=== PATIENT | female | born 1985 | race Caucasian/White ===

== ENCOUNTER 2016-06-07 11:46 | Emergency (ER) | payer OTHER ==
[~2016-06-07] VITALS: Ht 154.9 cm; Wt 59.0 kg
[2016-06-07 12:15] VITALS: BP 141/86
== END 2016-06-07 12:17 | disposition home or self-care (01) ==
LOC: ER 11:47
DX: O99.511 Diseases of the respiratory system complicating pregnancy, first trimester (principal); J06.9 Acute upper respiratory infection, unspecified; R00.0 Tachycardia, unspecified; Z3A.01 Less than 8 weeks gestation of pregnancy; I10 Essential (primary) hypertension; R09.82 Postnasal drip
CPT/HCPCS: 99282; A4606; Z7610

== ENCOUNTER 2017-07-15 22:42 | Emergency (ER) | payer OTHER | END 2017-07-15 23:01 | disposition left against medical advice (07) | LOC: ER 22:44 | DX: N93.9 Abnormal uterine and vaginal bleeding, unspecified (principal); Z53.21 Procedure and treatment not carried out due to patient leaving prior to being seen by health care provider ==

== ENCOUNTER 2020-10-27 12:27 | Emergency (ER) | payer OTHER ==
[~2020-10-27] VITALS: Ht 154.9 cm; Wt 65.8 kg
[2020-10-27 12:35] VITALS: BP 143/77
--- NOTE | 2020-10-27 13:35 | NUR ---
Patient does not wish to proceed with medical care recommended by Dr. Feliciano. Patient given information related to possible complications, up to and including , which could occur as a result of leaving the hospital at this time. Patient verbalizes understanding of risks involved due to leaving against medical advice. Patient has signed AMA form.
== END 2020-10-27 13:36 | disposition left against medical advice (07) ==
LOC: ER 12:28
DX: O26.92 Pregnancy related conditions, unspecified, second trimester (principal); R51.9 Headache, unspecified; O16.2 Unspecified maternal hypertension, second trimester; Z3A.26 26 weeks gestation of pregnancy